=== PATIENT | male | born 1985 | race Two or more races ===

== ENCOUNTER 2025-05-10 17:33 | Inpatient (IN) | payer MEDICAID, OTHER, SELFPAY ==
[~2025-05-10] VITALS: Ht 182.9 cm; Wt 99.6 kg
--- NOTE | 2025-05-10 18:02 | ED.PDOC ---
General HPI Comments curtis: Right abdominal pain HPI: Poor Historian. ---year old male presents to emergency department by EMS for evaluation of nausea and vomiting and right-sided abdominal pain since he left the hospital this morning. Patient went to [facility] with he had a kidney stent placed for history of kidney stone. Patient went home and took some hydrocodone he has been having nausea and vomiting and pain in the same area as before. Patient was slightly tachycardic and hypotensive at the scene blood pressure in the 80s. Patient is brought to the ED for further evaluation. Patient herself denies any other symptoms. Past Medical History:, hiatal hernia, GERD Past Surgical History: Right kidney stent placement REVIEW OF SYSTEMS: CONSTITUTIONAL: Denies acute: fever, diaphoresis, chills, HEAD: Denies acute: headache, photophobia Eyes: Denies acute: Double vision, vision loss, eye pain, eye discharge. EARS: Denies acute: tinnitus, hearing loss, ear discharge, ear pain, THROAT: Denies acute: sore throat, swelling, difficulty swallowing , pain with swallow ing, change in voice. NECK: Denies acute: neck pain, neck swelling, stiff neck. HEART: Denies acute : chest pain, palpitations, LUNGS: Denies acute: SOB, wheezing, cough, hemoptysis ABDOMEN: Denies acute: , diarrhea, melena , hematemesis, hematochezia SKIN: Denies acute: rash, redness, lesions, itchiness. EXTREMITIES: Denies acute: calf pain, numbness, tingling, weakness, denies pain in extremity. Denies acute: Low back pain. Neuro: Denies acute: focal neurological deficit, motor or sensory focal neurological deficit, tremors, seizure like activity, confusion, dizziness, change in mental status, loss of bowel or bladder function, cauda equina like symptoms. : Denies acute: dysuria, hematuria, increase in urinary frequency. PSYCH: Denies acute: hallucination, suicidal ideation, homicidal ideation. . PHYSICAL EXAM: General: ----moderate----acute distress, awake and alert. Head: normocephalic, atraumatic. No raccoon's eyes, no long sign. Neck: supple, trachea is midline, no swelling. Throat: Normal phonation. Eyes:, no erythema, no purulent discharge, no proptosis, no icterus. Heart: regular rate, regular rhythm, no significant murmur appreciated. Lungs: no apparent respiratory distress, Able to speak in full sentences. No wheezing, no rhonchi, no crackles. No stridors Clear to auscultation bilaterally. Abdomen: Right mid abdomen tender to palpation, non distended, soft, no guarding, no rebound, + bowel sounds. Neuro: Awake, Alert, oriented to name, self, situation, follows commands GCS=15. Speech is normal. Skin: no petechia, no purpura, no cyanosis, non-pale, not jaundice. Lower extremities: --no - Pitting edema no deformity, no focal swelling, no calf TTP. Makes eye contact. moves all four extremities. Face: no apparent facial droop. Right CVA tenderness to percussion . No nuchal rigidity, Kernig's sign, Brudzinski's sign, no meningeal signs. ED COURSE: DISCLAIMER: This medical document was created using an electronic medical record system with voice recognition software and computerized dictation system. Although this document has been carefully reviewed, there might still be some phonetic and typographical errors. Occasional wrong-word or "sound-alike" substitutions may have occurred due to the inherent limitations of voice recognition software. These areas are purely typographical due to imperfections of the software programs and do not reflect any compromise in the patient's medical care. Please read the chart carefully and recognize, using context, where these substitutions have occurred. Time Seen by MD: 17:41 Reviewed notes: Allergies Allergies: Coded Allergies: NO KNOWN ALLERGIES (Unverified , 05/10/25) Information Source: Patient, Emergency Med Personnel Was a procedure done? Was a procedure done?: No Differential Diagnosis Kidney stone (Female): N/A Kidney stone (Male): Other (Flank Pain;DDX include Nephrolethiasis, obstructive uropathy, kidney cancer, renal infarct, intraabdominal neoplasm, lower lobe pneumonia, retroperitoneal hemorrhage, pancreatitis, aneurysm, dissection, musculoskeletal, rib contusion/trauma, hematoma, PYLONEPHRITIS, muscle strain, spinal disease. ) X-Ray, Labs, Meds, VS Vital Signs Date Time Temp Pulse Resp B/P (MAP) Pulse Ox O2 Delivery O2 Flow Rate FiO2 05/10/25 19:38 89 12 96 Nasal Cannula* 2 28 05/10/25 19:30 97.9 89 12 139/82 (101) 96 97.9 05/10/25 18:25 146/87 05/10/25 17:49 Room Air* 0 21 05/10/25 17:49 98.9 79 20 150/93 (112) 99 98.9 05/10/25 17:33 98.7 98 18 82/30 100 98.7 Lab Test 05/10/25 19:20 05/10/25 17:54 Range/Units White Blood Count 12.7 H 13.0 H 4.4-10.8 10^3/uL Red Blood Count 5.43 5.31 4.5-5.90 10^6/uL Hemoglobin 14.7 14.6 13.5-17.5 g/dL Hematocrit 44.6 43.8 41.0-53.0 % Mean Corpuscular Volume 82.2 82.6 80.0-100.0 fL Mean Corpuscular Hemoglobin 27.0 L 27.5 L 28.0-32.0 pg Mean Corpuscular Hemoglobin Concent 32.9 33.3 32.0-36.0 g/dL Red Cell Distribution Width 14.3 14.2 11.8-14.3 % Platelet Count 333 318 140-450 10^3/uL Mean Platelet Volume 6.6 L 6.6 L 6.9-10.8 fL Neutrophils (%) (Auto) 91.5 H 94.2 H 37.0-80.0 % Lymphocytes (%) (Auto) 4.3 L 3.3 L 10.0-50.0 % Monocytes (%) (Auto) 4.1 2.0 0.0-12.0 % Eosinophils (%) (Auto) 0.0 0.0 0.0-7.0 % Basophils (%) (Auto) 0.1 0.5 0.0-2.0 % Neutrophils # (Auto) 11.7 H 12.2 H 1.6-8.6 10 ^3/uL Lymphocytes # (Auto) 0.5 0.4 0.4-5.4 10 ^3/uL Monocytes # (Auto) 0.5 0.3 0-1.3 10 ^3/uL Eosinophils # (Auto) 0 0 0-0.8 10 ^3/uL Basophils # (Auto) 0 0.1 0-0.2 10 ^3/uL Nucleated Red Blood Cells 0.1 0.0 % Sodium Level 143 141 136-145 mmol/L Potassium Level 4.7 4.8 3.5-5.1 mmol/L Chloride Level 107 106 98-107 mmol/L Carbon Dioxide Level 24 23 20-31 mmol/L Anion Gap 12 12 5-15 Blood Urea Nitrogen 15 16 9-23 mg/dL Creatinine 1.37 H 1.45 H 0.700-1.30 mg/dL Glomerular Filtration Rate Calc 67 63 >90 mL/min BUN/Creatinine Ratio 10.9 11.0 10.0-20.0 Serum Glucose 114 H 139 H 74-106 mg/dL Lactic Acid Level 2.6 *H 4.2 *H 0.4-2.0 mmol/L Calcium Level 10.2 10.0 8.7-10.4 mg/dL Total Bilirubin 0.4 0.3 0.2-1.0 mg/dL Aspartate Amino Transferase (AST) 31 34 13-40 U/L Alanine Aminotransferase (ALT) 76 H 74 H 7-40 U/L Alkaline Phosphatase 93 91 46-116 U/L Total Protein 8.6 H 8.4 H 5.7-8.2 g/dL Albumin 5.0 H 4.9 H 3.2-4.8 g/dL Prothrombin Time 11.2 9.3-11.8 sec Prothrombin Time INR 1.06 0.9-1.15 Activated Partial Thromboplast Time 27.6 24.5-34.5 SEC Lipase 40 12-53 U/L Current Medications Medications (Trade) Dose Ordered Sig/Carmen Route Start Time Stop Time Status Last Admin Sodium Chloride 1,000 ml @ 1,000 mls/hr Q1H ONCE IV 05/10/25 17:45 05/10/25 18:44 DC 05/10/25 18:16 Ondansetron HCl (Zofran) 8 mg ONCE ONCE IV 05/10/25 17:45 05/10/25 17:46 DC 05/10/25 18:24 Fentanyl Citrate 100 mcg ONCE ONCE IV 05/10/25 17:45 05/10/25 17:46 DC 05/10/25 18:25 Ceftriaxone Sodium 50 ml @ 100 mls/hr ONCE ONCE IV 05/10/25 17:45 05/10/25 18:14 DC 05/10/25 18:23 Lactated Ringer's 2,350 ml @ 2,350 mls/hr ONCE ONCE IV 05/10/25 19:30 05/10/25 20:29 DC 05/10/25 20:19 Vancomycin HCl 250 ml @ 250 mls/hr ONCE ONCE IV 05/10/25 19:30 05/10/25 20:29 DC 05/10/25 20:19 Cefepime HCl 50 ml @ 12.5 mls/hr ONCE ONCE IV 05/10/25 19:30 05/10/25 23:29 DC 05/10/25 20:18 X-Ray, Labs, Meds, VS Comment [place] [address] Ph: [phone] DIAGNOSTIC IMAGING Diagnostic Imaging Report : [id number] Signed PATIENT: MAIRA PHOENIX ACCT: [id number] UNIT: [id number] : 1985 LOC: ER ROOM / BED: / AGE / SEX: 39 / M ADM STATUS: REG ER SERVICE 21 ORDERING PHYSICIAN: SUSHANT MCKEON DO PROCEDURE(s): CXRP - CHEST PORTABLE REASON: sepsis ORDER NUMBER(s): [id number], ACCESSION NUMBER(s): [id number] CHEST RADIOGRAPH Indication: sepsis Technique: Single frontal view of the chest was obtained Comparison: None FINDINGS: Lines and Tubes: None Lungs: No focal consolidation. Pleura: No effusion. No pneumothorax. Cardiomediastinal contours: Unremarkable Bones: No acute osseous abnormality. IMPRESSION: 1. No acute cardiopulmonary disease. ATED BY: JANICE SANZ Jr., DO DICTATED DATE/TIME: 05/10/251957 SIGNED BY: JANICE SANZ Jr., DO SIGNED DATE/TIME: 05/10/251957 CC: [address] [address] Ph: [phone] DIAGNOSTIC IMAGING Diagnostic Imaging Report : [id number] Signed PATIENT: MAIRA PHOENIX ACCT: [id number] UNIT: [id number] : 1985 LOC: ER ROOM / BED: / AGE / SEX: 39 / M ADM STATUS: REG ER SERVICE 174 ORDERING PHYSICIAN: SUSHANT MCKEON DO PROCEDURE(s): ABPL - CT AB PEL WO CON-NO ORAL OR IV REASON: R FLANK, R ABD PAIN N/V ORDER NUMBER(s): [id number], ACCESSION NUMBER(s): [id number] EXAM: CT CT AB PEL WO CON-NO ORAL OR IV INDICATION: R FLANK, R ABD PAIN N/V TECHNIQUE: Volumetric multidetector CT images of the abdomen and pelvis were obtained without contrast. All CT scans at this facility use dose modulation, iterative reconstruction, and/or weight based dosing when appropriate to reduce radiation dose to as low as reasonably achievable. COMPARISON: None FINDINGS: [LOWER CHEST]: Atelectasis of the right lung base. The cardiac size is normal without pericardial effusion. [LIVER]: Normal hepatic size without suspicious focal lesion. [GALLBLADDER AND BILIARY TREE]: No cholelithiasis. [SPLEEN]: Unremarkable. [PANCREAS]: Unremarkable. [ADRENAL GLANDS]: Unremarkable [KIDNEYS]: Right renal pelvic 8 mm stone. Additional right inferior renal caliceal 6 mm stone. 2-3 mm left inferior renal caliceal stone with additional small caliber 1 mm stones. No measurable distal ureteral stone. No hydronephrosis. No suspicious focal lesion. [BLADDER]: Unremarkable for the degree distention. [REPRODUCTIVE ORGANS]: Unremarkable. [BOWEL/MESENTERY]: Mild stool burden. Stomach is normal. Normal appendix. No CT evidence of bowel obstruction. [ASCITES]: Absent [LYMPHADENOPATHY]: No pathologically enlarged lymph nodes by CT size criteria [VASCULATURE]: No aneurysmal dilatation. [ABDOMINAL WALL]: Unremarkable. [MUSCULOSKELETAL]: No acute fracture or aggressive focal osseous lesion. IMPRESSION: 1. No CT evidence of an acute abdominal/pelvic process. 2. Right renal pelvic 8 mm stone. 3. No hydronephrosis. ATED BY: CHACORTA HICKMAN MD DICTATED DATE/TIME: 05/10/251911 SIGNED BY: CHACORTA HICKMAN MD SIGNED DATE/TIME: 05/10/251911 CC: Time of 1ST Reevaluation: 00:00 Reevaluation 1ST: N/A Time of 2ND Reevaluation: 00:38 Reevaluation 2ND: Improved Patient Education/Counseling: Diagnosis, Treatment Family Education/Counseling: No Family Present Comments MDM: patient presented with the above HPI.--abdominal pain/flank pain----workup was initiated. patient was found with the above mentioned diagnosis. the following medications were ordered: please refer to order lists of meds and tests obtained by myself Dr. Mckeon. Patient ED course and VS have been stabilized. Patient has been reassessed in the ED and remained in a stable condition. Pertinent incidental findings were discussed with the patient and/or family. Patient/family voices understanding and is agreeable with plan. Patient has been observed in the ED adequate length of time to insure improvement/stability. Escalation of care considered: Consideration of escalation to observation or admission Patient's sepsis criteria. Sepsis bundle was initiated. Patient arrived hypotensive. Patient was ADMITTED to the medicine team for further evaluation and treatment of their presentation. All the reports of any imaging studies that were ordered by myself were reviewed by myself. 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 ) Ct Ab Pel Wo Con-No Oral Or Iv (05/10/25 17:41) Blood Culture (05/10/25 19:04) Urinalysis (05/10/25 19:04) Chest Portable (05/10/25 19:22) Accucheck (05/10/25 19:22) Notify Md If Map <65 Or Bp<90 (05/10/25 19:22) If Map<65 Start Vasopressor (05/10/25 19:22) Sepsis Reassesment After Fluid (05/10/25 20:22) Vital Signs Date Time Temp Pulse Resp B/P (MAP) Pulse Ox O2 Delivery O2 Flow Rate FiO2 05/10/25 19:38 89 12 96 Nasal Cannula* 2 28 05/10/25 19:30 97.9 89 12 139/82 (101) 96 97.9 05/10/25 18:25 146/87 05/10/25 17:49 Room Air* 0 21 05/10/25 17:49 98.9 79 20 150/93 (112) 99 98.9 05/10/25 17:33 98.7 98 18 82/30 100 98.7 Laboratory Tests Test 05/10/25 17:54 05/10/25 19:20 Lactic Acid Level 4.2 mmol/L (0.4-2.0) *H 2.6 mmol/L (0.4-2.0) *H White Blood Count 13.0 10^3/uL (4.4-10.8) H 12.7 10^3/uL (4.4-10.8) H Medications Medications Dose Ordered Sig/Carmen Route Start Time Stop Time Status Last Admin Dose Admin Cefepime HCl 50 ml @ 12.5 mls/hr ONCE ONCE IV 05/10/25 19:30 05/10/25 23:29 DC 05/10/25 20:18 Ceftriaxone Sodium 50 ml @ 100 mls/hr ONCE ONCE IV 05/10/25 17:45 05/10/25 18:14 DC 05/10/25 18:23 Fentanyl Citrate 100 mcg ONCE ONCE IV 05/10/25 17:45 05/10/25 17:46 DC 05/10/25 18:25 Lactated Ringer's 2,350 ml @ 2,350 mls/hr ONCE ONCE IV 05/10/25 19:30 05/10/25 20:29 DC 05/10/25 20:19 Ondansetron HCl 8 mg ONCE ONCE IV 05/10/25 17:45 05/10/25 17:46 DC 05/10/25 18:24 Sodium Chloride 1,000 ml @ 1,000 mls/hr Q1H ONCE IV 05/10/25 17:45 05/10/25 18:44 DC 05/10/25 18:16 Vancomycin HCl 250 ml @ 250 mls/hr ONCE ONCE IV 05/10/25 19:30 05/10/25 20:29 DC 05/10/25 20:19 Departure 1 Departure Time of Disposition: 19:27 Impression: Primary Impression: Sepsis Additional Impressions: Flank pain Kidney stone Disposition: ADMITTED INPATIENT Admit to: [facility] Condition: Guarded Discharged With: Self Critical Care Note Critical Care Time?: Yes (45 min-critical care time only) Critical care comment: Due to a high probability of clinically significant, life threatening deterioration, the patient required my highest level of preparedness to intervene emergently and I personally spent this critical care time directly and personally managing the patient. This critical care time included obtaining a history; examining the patient; pulse oximetry; ordering and review of studies; arranging urgent treatment with development of a management plan; evaluation of patient's response to treatment; frequent reassessment; and, discussions with other providers. This critical care time was performed to assess and manage the high probability of imminent, life-threatening deterioration that could result in multi-organ failure. It was exclusive of separately billable procedures and treating other patients and teaching time. Please see my other sections and the rest of the note for further information on patient assessment and treatment. I personally scribed for SUSHNAT MCKEON DO ([email or web address]) on 05/10/25 at 21:17. Electronically submitted by Jose Grant ([email or web address]). SUSHANT MCKEON DO May 10, 2025 18:02
[2025-05-10 18:14] LABS: Hematocrit 43.8 % (41.0-53.0); Hemoglobin 14.6 g/dL (13.5-17.5); Mean Corpuscular Hemoglobin 27.5 pg (28.0-32.0); Mean Corpuscular Volume 82.6 fL (80.0-100.0); Nucleated Red Blood Cells % 0.0 %
[2025-05-10] MEDS: SODIUM CHLORIDE 0.9% 1,000 ML IV ONE (18:16)
[2025-05-10] MEDS: ONDANSETRON HCL 4 MG/2 ML VIAL IV ONE (18:24)
[2025-05-10] MEDS: fentaNYL CITRATE 100 MCG/2 ML VL IV ONE (18:25)
[2025-05-10 18:32] LABS: Alkaline Phosphatase 91 U/L (46-116); Anion Gap 12 (5-15); BUN/Creatinine Ratio 11.0 (10.0-20.0); Blood Urea Nitrogen 16 mg/dL (9-23); Calcium 10.0 mg/dL (8.7-10.4); Carbon Dioxide 23 mmol/L (20-31); Chloride 106 mmol/L (98-107); Lipase 40 U/L (12-53); Potassium 4.8 mmol/L (3.5-5.1); Sodium 141 mmol/L (136-145)
[2025-05-10 18:33] LABS: Bilirubin, Total 0.3 mg/dL (0.2-1.0)
[2025-05-10 18:50] LABS: Alanine Aminotransferase 74 U/L (7-40); Albumin 4.9 g/dL (3.2-4.8); Glucose 139 mg/dL (74-106); Total Protein 8.4 g/dL (5.7-8.2)
--- NOTE | 2025-05-10 19:14 | DVH ---
EXAM: CT CT AB PEL WO CON-NO ORAL OR IV INDICATION: R FLANK, R ABD PAIN N/V TECHNIQUE: Volumetric multidetector CT images of the abdomen and pelvis were obtained without contrast. All CT scans at this facility use dose modulation, iterative reconstruction, and/or weight based dosing when appropriate to reduce radiation dose to as low as reasonably achievable. COMPARISON: None FINDINGS: [LOWER CHEST]: Atelectasis of the right lung base. The cardiac size is normal without pericardial effusion. [LIVER]: Normal hepatic size without suspicious focal lesion. [GALLBLADDER AND BILIARY TREE]: No cholelithiasis. [SPLEEN]: Unremarkable. [PANCREAS]: Unremarkable. [ADRENAL GLANDS]: Unremarkable [KIDNEYS]: Right renal pelvic 8 mm stone. Additional right inferior renal caliceal 6 mm stone. 2-3 mm left inferior renal caliceal stone with additional small caliber 1 mm stones. No measurable distal ureteral stone. No hydronephrosis. No suspicious focal lesion. [BLADDER]: Unremarkable for the degree distention. [REPRODUCTIVE ORGANS]: Unremarkable. [BOWEL/MESENTERY]: Mild stool burden. Stomach is normal. Normal appendix. No CT evidence of bowel obstruction. [ASCITES]: Absent [LYMPHADENOPATHY]: No pathologically enlarged lymph nodes by CT size criteria [VASCULATURE]: No aneurysmal dilatation. [ABDOMINAL WALL]: Unremarkable. [MUSCULOSKELETAL]: No acute fracture or aggressive focal osseous lesion. IMPRESSION: 1. No CT evidence of an acute abdominal/pelvic process. 2. Right renal pelvic 8 mm stone. 3. No hydronephrosis.
[2025-05-10 19:19] LABS: Lactic Acid w/Reflex 4.2 mmol/L (0.4-2.0)
[2025-05-10 19:38] VITALS: PULSE 89; RESP 12; O2SAT 96
[2025-05-10 20:01] LABS: Hematocrit 44.6 % (41.0-53.0); Hemoglobin 14.7 g/dL (13.5-17.5); Mean Corpuscular Hemoglobin 27.0 pg (28.0-32.0); Mean Corpuscular Volume 82.2 fL (80.0-100.0); Nucleated Red Blood Cells % 0.1 %
--- NOTE | 2025-05-10 20:01 | DVH ---
CHEST RADIOGRAPH Indication: sepsis Technique: Single frontal view of the chest was obtained Comparison: None FINDINGS: Lines and Tubes: None Lungs: No focal consolidation. Pleura: No effusion. No pneumothorax. Cardiomediastinal contours: Unremarkable Bones: No acute osseous abnormality. IMPRESSION: 1. No acute cardiopulmonary disease.
[2025-05-10 20:03] LABS: INR 1.06 (0.9-1.15); Partial Thromboplastin Time 27.6 SEC (24.5-34.5); Prothrombin Time 11.2 sec (9.3-11.8)
[2025-05-10 20:16] LABS: Alanine Aminotransferase 76 U/L (7-40); Albumin 5.0 g/dL (3.2-4.8); Alkaline Phosphatase 93 U/L (46-116); Anion Gap 12 (5-15); BUN/Creatinine Ratio 10.9 (10.0-20.0); Bilirubin, Total 0.4 mg/dL (0.2-1.0); Blood Urea Nitrogen 15 mg/dL (9-23); Calcium 10.2 mg/dL (8.7-10.4); Carbon Dioxide 24 mmol/L (20-31); Chloride 107 mmol/L (98-107); Glucose 114 mg/dL (74-106); Potassium 4.7 mmol/L (3.5-5.1); Sodium 143 mmol/L (136-145); Total Protein 8.6 g/dL (5.7-8.2)
[2025-05-10] MEDS: CEFEPIME 1GM/50ML 50 ML IV ONE (20:18)
[2025-05-10] MEDS: LACTATED RINGER'S 2,350 ML IV ONE (20:19)
[2025-05-10] MEDS: VANCOMYCIN 1GM/250ML KIT 250 ML IV ONE (20:19)
--- NOTE | 2025-05-10 20:54 | DVHHP2 ---
History of Present Illness Reason for Visit: Sepsis, unspecified organism History of Present Illness The patient is a 39-year-old male with past medical history of kidney stone, GERD, and hiatal hernia who presented to [facility] ED with complaint of abdominal pain. Patient reports that he has been experiencing acute abdominal pain radiating to the right flank, rating 7/10 numeric scale, associated with nausea, vomiting, getting worse that prompted this visit. Patient was seen and evaluated in the ED, laboratory data shows WBC 12.7, platelets 333, sodium 143, potassium 4.7, BUN 15, creatinine 1.37, GFR 67, glucose 114, calcium 10.2, AST 31, ALT 76, protein 8.6, albumin 5.0, lipase 40, lactic acid 4.2, blood pressure 146/87, heart rate 89, temperature 97.9 F, O2 saturation 96% on oxygen. Abdomen/pelvis CT revealing right renal pelvic 8 mm stone, no hydronephrosis, no evidence of an acute abdominal/pelvic process. Patient was started on IV antibiotic regimen Rocephin, please see medication orders section in the computer. On my assessment, patient denied chest pain, no headache, dizziness, diaphoresis, shortness of breaths, no diarrhea, nausea, vomiting, fever, no chills. Patient was admitted for further evaluation and medical management. Past Medical History Kidney stone, GERD, Hiatal hernia Past Surgical History Right kidney stent placement Family History Reviewed, noncontributory to the management of this case. Past Social History The patient lives at home, denies smoking, alcohol or illicit drugs abuse. Review of Systems Constitutional: No: Fever, Chills, Sweats, Weakness, Malaise, Other Eyes: No: Pain, Vision change, Conjunctivae inflammation, Eyelid inflammation, Other, Redness ENT: No: Ear pain, Ear discharge, Nose pain, Nose discharge, Nose congestion, Mouth pain, Mouth swelling, Throat pain, Throat swelling, Other Respiratory: No: Cough, Dry, Shortness of breath, SOB with excertion, Wheezing, Hemoptysis, Pleuritic Pain, Sputum, Wheezing, Other Cardiovascular: No: Chest Pain, Palpitations, Orthopnea, Paroxysmal Noc. Dyspnea, Edema, Lt Headedness, Other Gastrointestinal: Nausea, Vomiting, Abdominal Pain; No: Diarrhea, Constipation, Melena, Hematochezia, Other Genitourinary: No Dysuria, No Frequency, No Incontinence, No Hematuria, No Retention; Other (Right flank pain) Musculoskeletal: No: other, neck pain, shoulder pain, arm pain, back pain, hand pain, leg pain, foot pain Skin: No: Rash, Lesions, Jaundice, Bruising, Other Neurological: No: Weakness, Numbness, Incoordination, Change in speech, Confusion, Seizures, Other Allergies: Coded Allergies: NO KNOWN ALLERGIES (Unverified , 05/10/25) Exam Vital Signs Vital Signs Date Time Temp Pulse Resp B/P (MAP) Pulse Ox O2 Delivery O2 Flow Rate FiO2 05/10/25 19:38 89 12 96 Nasal Cannula* 2 28 05/10/25 19:30 97.9 139/82 (101) 97.9 General Appearance: Alert, Oriented X3, Cooperative, No acute distress HEENT: Atraumatic, PERRLA, EOMI, Mucous membr. moist/pink Respiratory: Normal air movement Cardiovascular: Regular rate, Normal S1, Normal S2, No murmurs Abdominal: Normal bowel sounds, Soft, No tenderness, No hepatospenomegaly, No masses Extremities: No clubbing, No cyanosis, No edema, Normal pulses, No tenderness/swelling Skin: No rashes, No significant lesion Neuro: Normal speech, Normal tone, Sensation intact, Cranial nerves 3-12 NL, Reflexes 2+, Other (Generalized weakness) Psych/Mental Status: Mental status NL, Mood NL Labs/Xrays Labs Test 05/10/25 19:20 05/10/25 17:54 Range/Units White Blood Count 12.7 H 4.4-10.8 10^3/uL Red Blood Count 5.43 4.5-5.90 10^6/uL Hemoglobin 14.7 13.5-17.5 g/dL Hematocrit 44.6 41.0-53.0 % Mean Corpuscular Volume 82.2 80.0-100.0 fL Mean Corpuscular Hemoglobin 27.0 L 28.0-32.0 pg Mean Corpuscular Hemoglobin Concent 32.9 32.0-36.0 g/dL Red Cell Distribution Width 14.3 11.8-14.3 % Platelet Count 333 140-450 10^3/uL Mean Platelet Volume 6.6 L 6.9-10.8 fL Neutrophils (%) (Auto) 91.5 H 37.0-80.0 % Lymphocytes (%) (Auto) 4.3 L 10.0-50.0 % Monocytes (%) (Auto) 4.1 0.0-12.0 % Eosinophils (%) (Auto) 0.0 0.0-7.0 % Basophils (%) (Auto) 0.1 0.0-2.0 % Neutrophils # (Auto) 11.7 H 1.6-8.6 10 ^3/uL Lymphocytes # (Auto) 0.5 0.4-5.4 10 ^3/uL Monocytes # (Auto) 0.5 0-1.3 10 ^3/uL Eosinophils # (Auto) 0 0-0.8 10 ^3/uL Basophils # (Auto) 0 0-0.2 10 ^3/uL Nucleated Red Blood Cells 0.1 % Sodium Level 143 136-145 mmol/L Potassium Level 4.7 3.5-5.1 mmol/L Chloride Level 107 98-107 mmol/L Carbon Dioxide Level 24 20-31 mmol/L Anion Gap 12 5-15 Blood Urea Nitrogen 15 9-23 mg/dL Creatinine 1.37 H 0.700-1.30 mg/dL Glomerular Filtration Rate Calc 67 >90 mL/min BUN/Creatinine Ratio 10.9 10.0-20.0 Serum Glucose 114 H 74-106 mg/dL Lactic Acid Level 2.6 *H 0.4-2.0 mmol/L Calcium Level 10.2 8.7-10.4 mg/dL Total Bilirubin 0.4 0.2-1.0 mg/dL Aspartate Amino Transferase (AST) 31 13-40 U/L Alanine Aminotransferase (ALT) 76 H 7-40 U/L Alkaline Phosphatase 93 46-116 U/L Total Protein 8.6 H 5.7-8.2 g/dL Albumin 5.0 H 3.2-4.8 g/dL Prothrombin Time 11.2 9.3-11.8 sec Prothrombin Time INR 1.06 0.9-1.15 Activated Partial Thromboplast Time 27.6 24.5-34.5 SEC Lipase 40 12-53 U/L PATIENT: MAIRA PHOENIX ACCT: [id number] UNIT: [id number] : 1985 LOC: ER ROOM / BED: / AGE / SEX: 39 / M ADM STATUS: REG ER SERVICE [id number] ORDERING PHYSICIAN: SUSHANT MCKEON DO PROCEDURE(s): ABPL - CT AB PEL WO CON-NO ORAL OR IV REASON: R FLANK, R ABD PAIN N/V ORDER NUMBER(s): [id number], ACCESSION NUMBER(s): [id number] EXAM: CT CT AB PEL WO CON-NO ORAL OR IV INDICATION: R FLANK, R ABD PAIN N/V TECHNIQUE: Volumetric multidetector CT images of the abdomen and pelvis were obtained without contrast. All CT scans at this facility use dose modulation, iterative reconstruction, and/or weight based dosing when appropriate to reduce radiation dose to as low as reasonably achievable. COMPARISON: None FINDINGS: [LOWER CHEST]: Atelectasis of the right lung base. The cardiac size is normal without pericardial effusion. [LIVER]: Normal hepatic size without suspicious focal lesion. [GALLBLADDER AND BILIARY TREE]: No cholelithiasis. [SPLEEN]: Unremarkable. [PANCREAS]: Unremarkable. [ADRENAL GLANDS]: Unremarkable [KIDNEYS]: Right renal pelvic 8 mm stone. Additional right inferior renal caliceal 6 mm stone. 2-3 mm left inferior renal caliceal stone with additional small caliber 1 mm stones. No measurable distal ureteral stone. No hydronephrosis. No suspicious focal lesion. [BLADDER]: Unremarkable for the degree distention. [REPRODUCTIVE ORGANS]: Unremarkable. [BOWEL/MESENTERY]: Mild stool burden. Stomach is normal. Normal appendix. No CT evidence of bowel obstruction. [ASCITES]: Absent [LYMPHADENOPATHY]: No pathologically enlarged lymph nodes by CT size criteria [VASCULATURE]: No aneurysmal dilatation. [ABDOMINAL WALL]: Unremarkable. [MUSCULOSKELETAL]: No acute fracture or aggressive focal osseous lesion. IMPRESSION: 1. No CT evidence of an acute abdominal/pelvic process. 2. Right renal pelvic 8 mm stone. 3. No hydronephrosis. ORDERING PHYSICIAN: SUSHANT MCKEON DO PROCEDURE(s): CXRP - CHEST PORTABLE REASON: sepsis ORDER NUMBER(s): [id number], ACCESSION NUMBER(s): [id number] CHEST RADIOGRAPH Indication: sepsis Technique: Single frontal view of the chest was obtained Comparison: None FINDINGS: Lines and Tubes: None Lungs: No focal consolidation. Pleura: No effusion. No pneumothorax. Cardiomediastinal contours: Unremarkable Bones: No acute osseous abnormality. IMPRESSION: 1. No acute cardiopulmonary disease. SEPSIS Sepsis Screen Date sepsis recognized/suspect: May 10, 2025 Time Sepsis recognized/suspect: 1937 Recent Procedure: Yes On Antibiotic Therapy: Yes Respiratory Rate >20: No Heart Rate >90: No Temp<36 C (96.8 F) or >38.3 C: No SBP <90 or MAP <65 mmHG: No New Acute Mental Status Change: No Is the patient on CPAP, BIPAP,: No Physician Orders Talent Acquisition Administrator (05/10/25 ) Ct Ab Pel Wo Con-No Oral Or Iv (05/10/25 17:41) Blood Culture (05/10/25 19:04) Urinalysis (05/10/25 19:04) Chest Portable (05/10/25 19:22) Accucheck (05/10/25 19:22) Lactic Acid W/ Reflex Order (05/10/25 22:00) Cefepime 1gm/50ml (Maxipime 1gm/50ml) (05/10/25 19:30) Notify Md If Map <65 Or Bp<90 (05/10/25 19:22) If Map<65 Start Vasopressor (05/10/25 19:22) Sepsis Reassesment After Fluid (05/10/25 20:22) Famotidine Injection (Pepcid Injection) (05/11/25 10:00) Ceftriaxone Ivpb Rocephin (05/11/25 09:00) Metronidazole Ivpb Flagyl (05/10/25 22:00) Lactated Ringers Lr (05/10/25 21:00) Lactic Acid W/ Reflex Order (05/10/25 23:00) Admit (05/10/25 20:47) Allergies (05/10/25 20:47) Code Status (05/10/25 20:47) Oxygen Per Hour (05/10/25 20:47) Hydrocodone-Acet 5/325mg Tab ([facility]enter 532 (05/10/25 21:00) Ondansetron Hcl (Zofran) (05/10/25 21:00) Docusate Sodium Capsule (Colace Capsule) (05/10/25 21:00) Complete Blood Count (05/11/25 04:00) Comprehensive Metabolic Panel (05/11/25 04:00) Condition: Serious (05/10/25 20:47) Acetaminophen Tablet (Tylenol Tablet) (05/10/25 21:00) Clear Liq Diet (05/11/25 Breakfast) Bedrest With Bathroom Privileg (05/10/25 20:47) Morphine Sulfate Injection (05/10/25 21:00) Sequential Compression Device (05/10/25 ) Nitroglycerin Sublingual (Ntrostat Subli (05/10/25 21:00) Morphine Sulfate Injection (05/10/25 21:00) Stat Ekg For Chest Pain (05/10/25 20:47) Notify Md Of Changes From Base (05/10/25 20:47) Accounts Receivable Associate For 24 Hours (05/10/25 20:47) Emergency Dysrhythmia Protocol (05/10/25 20:47) Rhythm Strips Once Every Shift (05/10/25 20:47) Oxygen By Nasal Cannula (05/10/25 20:47) Sertraline Hcl (Zoloft) (05/11/25 10:00) Tamsulosin Hydrochloride (Flomax) (05/11/25 18:00) Vital Signs Date Time Temp Pulse Resp B/P (MAP) Pulse Ox O2 Delivery O2 Flow Rate FiO2 05/10/25 19:38 89 12 96 Nasal Cannula* 2 28 05/10/25 19:30 97.9 89 12 139/82 (101) 96 97.9 05/10/25 18:25 146/87 05/10/25 17:49 Room Air* 0 21 05/10/25 17:49 98.9 79 20 150/93 (112) 99 98.9 05/10/25 17:33 98.7 98 18 82/30 100 98.7 Laboratory Tests Test 05/10/25 17:54 05/10/25 19:20 Lactic Acid Level 4.2 mmol/L (0.4-2.0) *H 2.6 mmol/L (0.4-2.0) *H White Blood Count 13.0 10^3/uL (4.4-10.8) H 12.7 10^3/uL (4.4-10.8) H Medications Medications Dose Ordered Sig/Carmen Route Start Time Stop Time Status Last Admin Dose Admin Cefepime HCl 50 ml @ 12.5 mls/hr ONCE ONCE IV 05/10/25 19:30 05/10/25 23:29 05/10/25 20:18 12.5 MLS/HR Ceftriaxone Sodium 50 ml @ 100 mls/hr ONCE ONCE IV 05/10/25 17:45 05/10/25 18:14 DC 05/10/25 18:23 100 MLS/HR Fentanyl Citrate 100 mcg ONCE ONCE IV 05/10/25 17:45 05/10/25 17:46 DC 05/10/25 18:25 100 MCG Lactated Ringer's 2,350 ml @ 2,350 mls/hr ONCE ONCE IV 05/10/25 19:30 05/10/25 20:29 DC 05/10/25 20:19 2,350 MLS/HR Ondansetron HCl 8 mg ONCE ONCE IV 05/10/25 17:45 05/10/25 17:46 DC 05/10/25 18:24 8 MG Sodium Chloride 1,000 ml @ 1,000 mls/hr Q1H ONCE IV 05/10/25 17:45 05/10/25 18:44 DC 05/10/25 18:16 1,000 MLS/HR Vancomycin HCl 250 ml @ 250 mls/hr ONCE ONCE IV 05/10/25 19:30 05/10/25 20:29 DC 05/10/25 20:19 250 MLS/HR Assessment/Plan Assessment/Plan Sepsis, unspecified organism Kidney stone Right flank pain Acute abdominal pain Generalized weakness Plan 1. Admit to telemetry unit 2. Breathing treatment 3. Pain control management 4. IV antibiotic management 5. Management of fluids and electrolytes 6. Consultation for hospitalist 7. Diagnostic test abdomen/pelvis CT 8. DVT prophylaxis-on SCDs 9. Repeat labs CBC, CMP in a.m. 10. Home medication reviewed and reconciled 11. Continue with current medical management 12. Treatment plan discussed with patient and RN. Patient verbalized understanding. Plan discussed with: Patient, Other (RN) My Orders Orders - FREDDY CHAVEZ DNP Procedure Category Date Status Time Famotidine Injection PHA 05/11/25 Transmitted (Pepcid Injection) 10:00 Ceftriaxone Ivpb PHA 05/11/25 Transmitted Rocephin 09:00 Metronidazole Ivpb PHA 05/10/25 Transmitted Flagyl 22:00 Lactated Ringers Lr PHA 05/10/25 Transmitted 21:00 Lactic Acid W/ Reflex LAB 05/10/25 Transmitted Order 23:00 Admit ADMIT 05/10/25 Transmitted 20:47 Allergies ANA 05/10/25 Transmitted 20:47 Code Status CODE 05/10/25 Transmitted 20:47 Oxygen Per Hour RT 05/10/25 Transmitted 20:47 Hydrocodone-Acet PHA 05/10/25 Transmitted 5/325mg Tab (C[place]enter 21:00 Ondansetron Hcl PHA 05/10/25 Transmitted (Zofran) 21:00 Docusate Sodium [facility] 05/10/25 Transmitted Capsule (Colace 21:00 Complete Blood Count LAB 05/11/25 Verified 04:00 Comprehensive LAB 05/11/25 Verified Metabolic Panel 04:00 Condition: Serious ANA 05/10/25 Transmitted 20:47 Acetaminophen Tablet [facility] 05/10/25 Transmitted (Tylenol Tablet) 21:00 Clear Liq Diet DIET 05/11/25 Transmitted Breakfast Bedrest With Bathroom ANA 05/10/25 Transmitted Privileg 20:47 Morphine Sulfate [facility] 05/10/25 Transmitted Injection 21:00 Sequential [facility] 05/10/25 Transmitted Compression Device Nitroglycerin [facility] 05/10/25 Transmitted Sublingual (Ntrostat 21:00 Morphine Sulfate PHA 05/10/25 Transmitted Injection 21:00 Stat Ekg For Chest [facility] 05/10/25 Transmitted Pain 20:47 Notify Of Changes [facility] 05/10/25 Transmitted From Base 20:47 Accounts Receivable Associate For [facility] 05/10/25 Transmitted 24 Hours 20:47 Emergency Dysrhythmia [facility] 05/10/25 Transmitted Protocol 20:47 Rhythm Strips Once [facility] 05/10/25 Transmitted Every Shift 20:47 Oxygen By Nasal RT 05/10/25 Transmitted Cannula 20:47 Sertraline Hcl [facility] 05/11/25 Transmitted (Zoloft) 10:00 Tamsulosin PHA 05/11/25 Transmitted Hydrochloride (Flomax) 18:00 Problem List: (1) Sepsis, unspecified organism (2) Kidney stone (3) Right flank pain (4) Acute abdominal pain (5) Generalized weakness Date of Service: May 10, 2025 Billing Provider: FREDDY CHAVEZ DNP Common Visit Codes: [id number] INP/OBS CARE (HIGH) FREDDY CHAVEZ DNP May 10, 2025 20:54
[2025-05-10] MEDS ORDERED: DOCUSATE SOD 100 MG CAP PO PRN (21:00)
[2025-05-10] MEDS ORDERED: NITROGLYCERIN 0.4 MG SL TAB SL PRN (21:00)
[2025-05-10] MEDS ORDERED: MORPHINE SULFATE INJ 2 MG/ml SYRG IV PRN ×2 (21:00)
[2025-05-10] MEDS: LACTATED RINGER'S 1,000 ML IV SCH (21:33)
[2025-05-11] VITALS (7 sets, daily range): BP systolic 145–158; BP diastolic 85–97; PULSE 77–89; RESP 16–20; TEMP 98.2–98.7; O2SAT 94–98
[2025-05-11 00:43] LABS: Urine Protein, UAD 1+ (Negative)
[2025-05-11] MEDS: ACETAMINOPHEN 325 MG TAB PO PRN (01:48)
[2025-05-11 03:29] LABS: Hematocrit 39.3 % (41.0-53.0); Hemoglobin 13.1 g/dL (13.5-17.5); Mean Corpuscular Hemoglobin 27.4 pg (28.0-32.0); Mean Corpuscular Volume 81.9 fL (80.0-100.0); Nucleated Red Blood Cells % 0.0 %
[2025-05-11 03:45] LABS: Albumin 4.3 g/dL (3.2-4.8); Alkaline Phosphatase 77 U/L (46-116); Anion Gap 10 (5-15); BUN/Creatinine Ratio 11.7 (10.0-20.0); Bilirubin, Total 0.4 mg/dL (0.2-1.0); Blood Urea Nitrogen 13 mg/dL (9-23); Calcium 9.4 mg/dL (8.7-10.4); Carbon Dioxide 26 mmol/L (20-31); Chloride 105 mmol/L (98-107); Glucose 105 mg/dL (74-106); Potassium 4.3 mmol/L (3.5-5.1); Sodium 141 mmol/L (136-145); Total Protein 7.2 g/dL (5.7-8.2)
[2025-05-11 03:47] LABS: Alanine Aminotransferase 56 U/L (7-40)
[2025-05-11] MEDS: FAMOTIDINE (10MG/ML) 2ML VL IV SCH (10:31)
[2025-05-11] MEDS: SERTRALINE HCL 50 MG TAB PO SCH (10:31)
[2025-05-11] MEDS: HYDROcodone-ACET 5/325MG TAB PO PRN (12:02)
--- NOTE | 2025-05-11 14:32 | DVHPN2 ---
Subjective minimal pain today Reviewed: H&P Changes from previous H/P or p: No Changes Eyes: No Pain, No Vision change, No Conjunctivae inflammation, No Eyelid inflammation, No Other, No Redness ENT: No Ear pain, No Ear discharge, No Nose pain, No Nose discharge, No Nose congestion, No Mouth pain, No Mouth swelling, No Throat pain, No Throat swelling, No Other Cardiovascular: No Chest Pain, No Palpitations, No Orthopnea, No Paroxysmal Noc. Dyspnea, No Edema, No Lt Headedness, No Other Respiratory: No Cough, No Dry, No Shortness of breath, No SOB with excertion, No Wheezing, No Hemoptysis, No Pleuritic Pain, No Sputum, No Other Gastrointestinal: Nausea, Vomiting, Abdominal Pain; No Diarrhea, No Constipation, No Melena, No Hematochezia, No Other Genitourinary: No Dysuria, No Frequency, No Incontinence, No Hematuria, No Retention; Other (Right flank pain) Musculoskeletal: No other, No neck pain, No shoulder pain, No arm pain, No back pain, No hand pain, No leg pain, No foot pain Skin: No Rash, No Lesions, No Jaundice, No Bruising, No Other Objective Vitals Vital Signs Date Time Temp Pulse Resp B/P (MAP) Pulse Ox O2 Delivery O2 Flow Rate FiO2 05/11/25 12:32 98.7 84 18 154/85 (108) 98 98.7 05/11/25 08:00 Room Air* 0 21 Intake/Output Intake and Output 05/11/25 07:00 Intake Total 2925.0 ml Balance 2925.0 ml Intake IV Total 2925.0 ml General Appearance: Alert, Oriented X3 HEENT: Atraumatic Lungs: Clear to auscultation Cardiovascular: Regular rate, Normal S1, Normal S2 Abdomen: Normal bowel sounds Medications Current Medications Medications Dose Ordered Sig/Carmen Route Start Time Stop Time Status Last Admin Dose Admin Famotidine 20 mg DAILY IV 05/11/25 10:00 05/11/25 10:31 20 MG Ceftriaxone Sodium 50 ml @ 100 mls/hr DAILY@09 IV 05/11/25 09:00 05/11/25 10:31 100 MLS/HR Metronidazole 100 ml @ 100 mls/hr Q8HR IV 05/10/25 22:00 05/11/25 05:23 100 MLS/HR Lactated Ringer's 1,000 ml @ 100 mls/hr Q10H IV 05/10/25 21:00 05/11/25 06:28 100 MLS/HR Acetaminophen/ Hydrocodone Bitart 1 tab Q4HP PRN PO 05/10/25 21:00 05/11/25 12:02 1 TAB Ondansetron HCl 4 mg Q4HP PRN IV 05/10/25 21:00 Docusate Sodium 100 mg BIDPRN PRN PO 05/10/25 21:00 Acetaminophen 650 mg Q6HP PRN PO 05/10/25 21:00 05/11/25 01:48 650 MG Morphine Sulfate 2 mg Q4HPRN PRN IV 05/10/25 21:00 Nitroglycerin 0.4 mg Q5MINP PRN SL 05/10/25 21:00 Morphine Sulfate 2 mg Q30M PRN IV 05/10/25 21:00 Sertraline HCl 100 mg DAILY PO 05/11/25 10:00 05/11/25 10:31 100 MG Tamsulosin HCl 0.4 mg QPM PO 05/11/25 18:00 Laboratory Results Laboratory Tests 05/11/25 03:10 Chemistry Test 05/10/25 17:54 05/10/25 19:20 05/11/25 03:10 Albumin 4.9 g/dL (3.2-4.8) H 5.0 g/dL (3.2-4.8) H 4.3 g/dL (3.2-4.8) Calcium Level 10.0 mg/dL (8.7-10.4) 10.2 mg/dL (8.7-10.4) 9.4 mg/dL (8.7-10.4) Total Protein 8.4 g/dL (5.7-8.2) H 8.6 g/dL (5.7-8.2) H 7.2 g/dL (5.7-8.2) Coagulation Test 05/10/25 17:54 Prothrombin Time 11.2 sec (9.3-11.8) Prothrombin Time INR 1.06 (0.9-1.15) Activated Partial Thromboplast Time 27.6 SEC (24.5-34.5) Lipid panel Test 05/10/25 17:54 Lipase 40 U/L (12-53) LFT Test 05/10/25 17:54 05/10/25 19:20 05/11/25 03:10 Alanine Aminotransferase (ALT) 74 U/L (7-40) H 76 U/L (7-40) H 56 U/L (7-40) H Alkaline Phosphatase 91 U/L (46-116) 93 U/L (46-116) 77 U/L (46-116) Aspartate Amino Transferase (AST) 34 U/L (13-40) 31 U/L (13-40) 24 U/L (13-40) Total Bilirubin 0.3 mg/dL (0.2-1.0) 0.4 mg/dL (0.2-1.0) 0.4 mg/dL (0.2-1.0) Urinalysis Test 05/11/25 00:17 Urine Color Light-yellow (Yellow) Urine Clarity Clear (Clear) Urine pH 6.0 (5.0-9.0) Urine Specific [place] 1.019 (1.001-1.035) Urine Protein 1+ (Negative) H Urine Ketones Negative (Negative) Urine Blood 3+ /uL (Negative) H Urine Nitrite Negative (Negative) Urine Bilirubin Negative (Negative) Urine Urobilinogen Normal mg/dL (Negative) Urine Leukocyte Esterase Negative /uL (Negative) Urine RBC 351 /hpf (0 - 3) Urine Microscopic WBC 1 /HPF (0-3) Urine Squamous Epithelial Cells None seen /hpf (<5) Urine Bacteria Few /hpf (None Seen) H Urine Glucose Normal mg/dL (Normal) Assessment/Plan Assessment/Plan Sepsis, unspecified organism Kidney stone Right flank pain Acute abdominal pain Generalized weakness Continue IV abx IVF Plan discussed with: Patient Date of Service: May 11, 2025 Billing Provider: ANTON MOON MD Common Visit Codes: [id number] INP/OBS CARE(HIGH) ANTON MOON MD May 11, 2025 14:32
[2025-05-11] MEDS: TAMSULOSIN HYDROCHLORIDE 0.4 MG CAP PO SCH (17:45)
[2025-05-11] MEDS: ONDANSETRON HCL 4 MG/2 ML VIAL IV PRN (17:45)
[2025-05-12] VITALS (8 sets, daily range): BP systolic 139–156; BP diastolic 70–105; PULSE 71–86; RESP 14–17; TEMP 97.9–99.5; O2SAT 94–98
--- NOTE | 2025-05-12 14:40 | DVHPN2 ---
Subjective minimal pain today Reviewed: H&P Changes from previous H/P or p: No Changes Eyes: No Pain, No Vision change, No Conjunctivae inflammation, No Eyelid inflammation, No Other, No Redness ENT: No Ear pain, No Ear discharge, No Nose pain, No Nose discharge, No Nose congestion, No Mouth pain, No Mouth swelling, No Throat pain, No Throat swelling, No Other Cardiovascular: No Chest Pain, No Palpitations, No Orthopnea, No Paroxysmal Noc. Dyspnea, No Edema, No Lt Headedness, No Other Respiratory: No Cough, No Dry, No Shortness of breath, No SOB with excertion, No Wheezing, No Hemoptysis, No Pleuritic Pain, No Sputum, No Other Gastrointestinal: Nausea, Vomiting, Abdominal Pain; No Diarrhea, No Constipation, No Melena, No Hematochezia, No Other Genitourinary: No Dysuria, No Frequency, No Incontinence, No Hematuria, No Retention; Other (Right flank pain) Musculoskeletal: No other, No neck pain, No shoulder pain, No arm pain, No back pain, No hand pain, No leg pain, No foot pain Skin: No Rash, No Lesions, No Jaundice, No Bruising, No Other Objective Vitals Vital Signs Date Time Temp Pulse Resp B/P (MAP) Pulse Ox O2 Delivery O2 Flow Rate FiO2 05/12/25 09:00 98.1 73 16 143/94 (110) 94 98.1 05/12/25 08:00 Room Air* 0 21 Intake/Output Intake and Output 05/12/25 05:00 Intake Total 150 ml Balance 150 ml Intake IV Total 150 ml General Appearance: Alert, Oriented X3 HEENT: Atraumatic Lungs: Clear to auscultation Cardiovascular: Regular rate, Normal S1, Normal S2 Abdomen: Normal bowel sounds Medications Current Medications Medications Dose Ordered Sig/Carmen Route Start Time Stop Time Status Last Admin Dose Admin Famotidine 20 mg DAILY IV 05/11/25 10:00 05/12/25 10:08 20 MG Ceftriaxone Sodium 50 ml @ 100 mls/hr DAILY@09 IV 05/11/25 09:00 05/12/25 10:08 100 MLS/HR Metronidazole 100 ml @ 100 mls/hr Q8HR IV 05/10/25 22:00 05/12/25 06:23 100 MLS/HR Lactated Ringer's 1,000 ml @ 100 mls/hr Q10H IV 05/10/25 21:00 05/12/25 06:25 100 MLS/HR Acetaminophen/ Hydrocodone Bitart 1 tab Q4HP PRN PO 05/10/25 21:00 05/12/25 08:17 1 TAB Ondansetron HCl 4 mg Q4HP PRN IV 05/10/25 21:00 05/11/25 17:45 4 MG Docusate Sodium 100 mg BIDPRN PRN PO 05/10/25 21:00 Acetaminophen 650 mg Q6HP PRN PO 05/10/25 21:00 05/11/25 20:43 650 MG Morphine Sulfate 2 mg Q4HPRN PRN IV 05/10/25 21:00 Nitroglycerin 0.4 mg Q5MINP PRN SL 05/10/25 21:00 Morphine Sulfate 2 mg Q30M PRN IV 05/10/25 21:00 Sertraline HCl 100 mg DAILY PO 05/11/25 10:00 05/12/25 10:10 100 MG Tamsulosin HCl 0.4 mg QPM PO 05/11/25 18:00 05/11/25 17:45 0.4 MG Laboratory Results Laboratory Tests 05/11/25 03:10 Urinalysis Test 05/11/25 00:17 Urine Color Light-yellow (Yellow) Urine Clarity Clear (Clear) Urine pH 6.0 (5.0-9.0) Urine Specific [place] 1.019 (1.001-1.035) Urine Protein 1+ (Negative) H Urine Ketones Negative (Negative) Urine Blood 3+ /uL (Negative) H Urine Nitrite Negative (Negative) Urine Bilirubin Negative (Negative) Urine Urobilinogen Normal mg/dL (Negative) Urine Leukocyte Esterase Negative /uL (Negative) Urine RBC 351 /hpf (0 - 3) Urine Microscopic WBC 1 /HPF (0-3) Urine Squamous Epithelial Cells None seen /hpf (<5) Urine Bacteria Few /hpf (None Seen) H Urine Glucose Normal mg/dL (Normal) Microbiology Microbiology Date/Time Source Procedure Growth Status 05/10/25 19:30 Blood Blood Culture - Preliminary NO GROWTH AFTER 24 HOURS OF INCUBATION. Resulted Assessment/Plan Assessment/Plan Sepsis, unspecified organism Kidney stone Right flank pain Acute abdominal pain Generalized weakness Continue IV abx IVF Consult urology Plan discussed with: Patient My Orders Orders - SARAI,ANTON J MD Procedure Category Date Status Time Regular Diet DIET 05/12/25 Transmitted Lunch * Urology Consult CONS 05/12/25 Transmitted 14:20 Date of Service: May 12, 2025 Billing Provider: ANTON MOON MD Common Visit Codes: [id number] INP/OBS CARE(HIGH) ANTON MOON MD May 12, 2025 14:40
[2025-05-13] VITALS (8 sets, daily range): BP systolic 123–146; BP diastolic 80–93; PULSE 18–94; RESP 17–94; TEMP 98–99.8; O2SAT 93–99
--- NOTE | 2025-05-13 12:21 | DVHINCON2 ---
Date of service: May 13, 2025 Referring Physician Hospitalist Reason for Consultation renal stones History of Present Illness History Source: Patient, RN Notes, MD Notes, Old Records Exam Limitations: No limitations HPI 9-year-old male with past medical history of kidney stone, prior lithotripsy 2020, GERD, and hiatal hernia who presented to [facility] ED with complaint of abdominal pain. Patient reports that he has been experiencing acute abdominal pain radiating to the right flank, rating 7/10 numeric scale, associated with nausea, vomiting, getting worse that prompted this visit. Review of Systems Gastrointestinal: Nausea, Vomiting, Abdominal Pain H&P Exam Vital Signs Vital Signs Date Time Temp Pulse Resp B/P (MAP) Pulse Ox O2 Delivery O2 Flow Rate FiO2 05/13/25 09:00 98.2 94 18 123/93 (103) 93 98.2 05/13/25 08:00 Room Air* 0 21 General Appeara: Well developed, Well nourished, Normal Appearance Labs/Xrays [place] [address] Ph: [phone] DIAGNOSTIC IMAGING Diagnostic Imaging Report : [id number] Signed PATIENT: MAIRA PHOENIX ACCT: [id number] UNIT: [id number] : 1985 LOC: ER ROOM / BED: / AGE / SEX: 39 / M ADM STATUS: REG ER SERVICE 1741 ORDERING PHYSICIAN: SUSHANT MCKEON DO PROCEDURE(s): ABPL - CT AB PEL WO CON-NO ORAL OR IV REASON: R FLANK, R ABD PAIN N/V ORDER NUMBER(s): [id number], ACCESSION NUMBER(s): [id number] EXAM: CT CT AB PEL WO CON-NO ORAL OR IV INDICATION: R FLANK, R ABD PAIN N/V TECHNIQUE: Volumetric multidetector CT images of the abdomen and pelvis were obtained without contrast. All CT scans at this facility use dose modulation, iterative reconstruction, and/or weight based dosing when appropriate to reduce radiation dose to as low as reasonably achievable. COMPARISON: None FINDINGS: [LOWER CHEST]: Atelectasis of the right lung base. The cardiac size is normal without pericardial effusion. [LIVER]: Normal hepatic size without suspicious focal lesion. [GALLBLADDER AND BILIARY TREE]: No cholelithiasis. [SPLEEN]: Unremarkable. [PANCREAS]: Unremarkable. [ADRENAL GLANDS]: Unremarkable [KIDNEYS]: Right renal pelvic 8 mm stone. Additional right inferior renal caliceal 6 mm stone. 2-3 mm left inferior renal caliceal stone with additional small caliber 1 mm stones. No measurable distal ureteral stone. No hydronephrosis. No suspicious focal lesion. [BLADDER]: Unremarkable for the degree distention. [REPRODUCTIVE ORGANS]: Unremarkable. [BOWEL/MESENTERY]: Mild stool burden. Stomach is normal. Normal appendix. No CT evidence of bowel obstruction. [ASCITES]: Absent [LYMPHADENOPATHY]: No pathologically enlarged lymph nodes by CT size criteria [VASCULATURE]: No aneurysmal dilatation. [ABDOMINAL WALL]: Unremarkable. [MUSCULOSKELETAL]: No acute fracture or aggressive focal osseous lesion. IMPRESSION: 1. No CT evidence of an acute abdominal/pelvic process. 2. Right renal pelvic 8 mm stone. 3. No hydronephrosis. ATED BY: CHACORTA HICKMAN MD DICTATED DATE/TIME: 05/10/251911 SIGNED BY: CHACORTA HICKMAN MD SIGNED DATE/TIME: 05/10/251911 CC: Labs Test 05/11/25 03:10 05/11/25 00:17 05/10/25 22:13 05/10/25 17:54 Range/Units White Blood Count 11.4 H 4.4-10.8 10^3/uL Red Blood Count 4.80 4.5-5.90 10^6/uL Hemoglobin 13.1 L 13.5-17.5 g/dL Hematocrit 39.3 #L 41.0-53.0 % Mean Corpuscular Volume 81.9 80.0-100.0 fL Mean Corpuscular Hemoglobin 27.4 L 28.0-32.0 pg Mean Corpuscular Hemoglobin Concent 33.4 32.0-36.0 g/dL Red Cell Distribution Width 14.3 11.8-14.3 % Platelet Count 289 140-450 10^3/uL Mean Platelet Volume 6.3 L 6.9-10.8 fL Neutrophils (%) (Auto) 79.9 37.0-80.0 % Lymphocytes (%) (Auto) 11.1 10.0-50.0 % Monocytes (%) (Auto) 8.5 0.0-12.0 % Eosinophils (%) (Auto) 0.0 0.0-7.0 % Basophils (%) (Auto) 0.5 0.0-2.0 % Neutrophils # (Auto) 9.1 H 1.6-8.6 10 ^3/uL Lymphocytes # (Auto) 1.3 0.4-5.4 10 ^3/uL Monocytes # (Auto) 1.0 0-1.3 10 ^3/uL Eosinophils # (Auto) 0 0-0.8 10 ^3/uL Basophils # (Auto) 0.1 0-0.2 10 ^3/uL Nucleated Red Blood Cells 0.0 % Sodium Level 141 136-145 mmol/L Potassium Level 4.3 3.5-5.1 mmol/L Chloride Level 105 98-107 mmol/L Carbon Dioxide Level 26 20-31 mmol/L Anion Gap 10 5-15 Blood Urea Nitrogen 13 9-23 mg/dL Creatinine 1.11 0.700-1.30 mg/dL Glomerular Filtration Rate Calc 87 >90 mL/min BUN/Creatinine Ratio 11.7 10.0-20.0 Serum Glucose 105 74-106 mg/dL Calcium Level 9.4 8.7-10.4 mg/dL Total Bilirubin 0.4 0.2-1.0 mg/dL Aspartate Amino Transferase (AST) 24 13-40 U/L Alanine Aminotransferase (ALT) 56 H 7-40 U/L Alkaline Phosphatase 77 46-116 U/L Total Protein 7.2 5.7-8.2 g/dL Albumin 4.3 3.2-4.8 g/dL Urine Color Light-yellow Yellow Urine Clarity Clear Clear Urine pH 6.0 5.0-9.0 Urine Specific [place] 1.019 1.001-1.035 Urine Protein 1+ H Negative Urine Ketones Negative Negative Urine Blood 3+ H Negative /uL Urine Nitrite Negative Negative Urine Bilirubin Negative Negative Urine Urobilinogen Normal Negative mg/dL Urine Leukocyte Esterase Negative Negative /uL Urine RBC 351 0 - 3 /hpf Urine Microscopic WBC 1 0-3 /HPF Urine Squamous Epithelial Cells None seen <5 /hpf Urine Bacteria Few H None Seen /hpf Urine Glucose Normal Normal mg/dL Lactic Acid Level 1.9 0.4-2.0 mmol/L Prothrombin Time 11.2 9.3-11.8 sec Prothrombin Time INR 1.06 0.9-1.15 Activated Partial Thromboplast Time 27.6 24.5-34.5 SEC Lipase 40 12-53 U/L Microbiology Date/Time Source Procedure Growth Status 05/10/25 19:30 Blood Blood Culture - Preliminary NO GROWTH AFTER 48 HOURS OF INCUBATION. Resulted Assessment/Plan Problem List: (1) Kidney stone (2) Flank pain Plan NPO after midnight consent for cystoscopy with possible stent placement and right ESWL Plan discussed with: Patient, Other CULLEN VASQUEZ [employer] May 13, 2025 12:21
--- NOTE | 2025-05-13 14:12 | MEDREC ---
[facility] Intervention Section I [facility] Intervention: Review courses of therapy (PLEASE CONSIDER D/C ANTIBIOTIC IN ABSENCE OF BACTERIAL INFECTION) PHILIP LOGAN PHARMACIST May 13, 2025 14:12
--- NOTE | 2025-05-13 15:44 | DVHPN2 ---
Subjective minimal pain today Reviewed: H&P Changes from previous H/P or p: No Changes Eyes: No Pain, No Vision change, No Conjunctivae inflammation, No Eyelid inflammation, No Other, No Redness ENT: No Ear pain, No Ear discharge, No Nose pain, No Nose discharge, No Nose congestion, No Mouth pain, No Mouth swelling, No Throat pain, No Throat swelling, No Other Cardiovascular: No Chest Pain, No Palpitations, No Orthopnea, No Paroxysmal Noc. Dyspnea, No Edema, No Lt Headedness, No Other Respiratory: No Cough, No Dry, No Shortness of breath, No SOB with excertion, No Wheezing, No Hemoptysis, No Pleuritic Pain, No Sputum, No Other Gastrointestinal: Nausea, Vomiting, Abdominal Pain; No Diarrhea, No Constipation, No Melena, No Hematochezia, No Other Genitourinary: No Dysuria, No Frequency, No Incontinence, No Hematuria, No Retention; Other (Right flank pain) Musculoskeletal: No other, No neck pain, No shoulder pain, No arm pain, No back pain, No hand pain, No leg pain, No foot pain Skin: No Rash, No Lesions, No Jaundice, No Bruising, No Other Objective Vitals Vital Signs Date Time Temp Pulse Resp B/P (MAP) Pulse Ox O2 Delivery O2 Flow Rate FiO2 05/13/25 12:48 98.4 78 18 144/82 (102) 97 98.4 05/13/25 08:00 Room Air* 0 21 Intake/Output Intake and Output 05/13/25 05:00 Intake Total 100 ml Balance 100 ml Intake IV Total 100 ml General Appearance: Alert, Oriented X3 HEENT: Atraumatic Lungs: Clear to auscultation Cardiovascular: Regular rate, Normal S1, Normal S2 Abdomen: Normal bowel sounds Medications Current Medications Medications Dose Ordered Sig/Carmen Route Start Time Stop Time Status Last Admin Dose Admin Famotidine 20 mg DAILY IV 05/11/25 10:00 05/13/25 08:42 20 MG Ceftriaxone Sodium 50 ml @ 100 mls/hr DAILY@09 IV 05/11/25 09:00 05/13/25 08:40 100 MLS/HR Metronidazole 100 ml @ 100 mls/hr Q8HR IV 05/10/25 22:00 05/13/25 14:11 100 MLS/HR Acetaminophen/ Hydrocodone Bitart 1 tab Q4HP PRN PO 12/5/25 21:00 05/12/25 15:45 1 TAB Ondansetron HCl 4 mg Q4HP PRN IV 05/10/25 21:00 05/11/25 17:45 4 MG Docusate Sodium 100 mg BIDPRN PRN PO 05/10/25 21:00 Acetaminophen 650 mg Q6HP PRN PO 05/10/25 21:00 05/13/25 05:48 650 MG Morphine Sulfate 2 mg Q4HPRN PRN IV 05/10/25 21:00 Nitroglycerin 0.4 mg Q5MINP PRN SL 05/10/25 21:00 Morphine Sulfate 2 mg Q30M PRN IV 05/10/25 21:00 Sertraline HCl 100 mg DAILY PO 05/11/25 10:00 05/13/25 08:42 100 MG Tamsulosin HCl 0.4 mg QPM PO 05/11/25 18:00 05/12/25 17:37 0.4 MG Laboratory Results Laboratory Tests 05/11/25 03:10 Urinalysis Test 05/11/25 00:17 Urine Color Light-yellow (Yellow) Urine Clarity Clear (Clear) Urine pH 6.0 (5.0-9.0) Urine Specific [place] 1.019 (1.001-1.035) Urine Protein 1+ (Negative) H Urine Ketones Negative (Negative) Urine Blood 3+ /uL (Negative) H Urine Nitrite Negative (Negative) Urine Bilirubin Negative (Negative) Urine Urobilinogen Normal mg/dL (Negative) Urine Leukocyte Esterase Negative /uL (Negative) Urine RBC 351 /hpf (0 - 3) Urine Microscopic WBC 1 /HPF (0-3) Urine Squamous Epithelial Cells None seen /hpf (<5) Urine Bacteria Few /hpf (None Seen) H Urine Glucose Normal mg/dL (Normal) Microbiology Microbiology Date/Time Source Procedure Growth Status 05/10/25 19:30 Blood Blood Culture - Preliminary NO GROWTH AFTER 48 HOURS OF INCUBATION. Resulted Assessment/Plan Assessment/Plan Sepsis, unspecified organism Kidney stone Right flank pain Acute abdominal pain Generalized weakness Continue IV abx IVF Consult urology>going for stent and lithotripsy Plan discussed with: Patient My Orders Orders - ANTON MOON MD Procedure Category Date Status Time * Urology Consult CONS 05/13/25 Transmitted 11:01 Date of Service: May 13, 2025 Billing Provider: ANTON MOON MD Common Visit Codes: [id number] INP/OBS CARE(HIGH) ANTON MOON MD May 13, 2025 15:44
[2025-05-14 01:00] VITALS: BP 152/98; PULSE 81; RESP 18; TEMP 98.3; O2SAT 96
[2025-05-14 05:00] VITALS: BP 133/85; PULSE 75; RESP 17; TEMP 97.6; O2SAT 94
[2025-05-14 07:13] LABS: INR 1.13 (0.9-1.15); Partial Thromboplastin Time 30.5 SEC (24.5-34.5); Prothrombin Time 11.8 sec (9.3-11.8)
[2025-05-14 08:00] VITALS: PULSE 66; PULSE 74; RESP 16; O2SAT 95
[2025-05-14 09:00] VITALS: BP 119/77; PULSE 74; RESP 16; TEMP 97.7; O2SAT 95
[2025-05-14] MEDS ORDERED: CIPROFLOXACIN 400MG/200ML 200 ML IV ONE (12:21)
--- NOTE | 2025-05-14 12:28 | DVHPN2 ---
Subjective minimal pain today Reviewed: H&P Changes from previous H/P or p: No Changes Eyes: No Pain, No Vision change, No Conjunctivae inflammation, No Eyelid inflammation, No Other, No Redness ENT: No Ear pain, No Ear discharge, No Nose pain, No Nose discharge, No Nose congestion, No Mouth pain, No Mouth swelling, No Throat pain, No Throat swelling, No Other Cardiovascular: No Chest Pain, No Palpitations, No Orthopnea, No Paroxysmal Noc. Dyspnea, No Edema, No Lt Headedness, No Other Respiratory: No Cough, No Dry, No Shortness of breath, No SOB with excertion, No Wheezing, No Hemoptysis, No Pleuritic Pain, No Sputum, No Other Gastrointestinal: Nausea, Vomiting, Abdominal Pain; No Diarrhea, No Constipation, No Melena, No Hematochezia, No Other Genitourinary: No Dysuria, No Frequency, No Incontinence, No Hematuria, No Retention; Other (Right flank pain) Musculoskeletal: No other, No neck pain, No shoulder pain, No arm pain, No back pain, No hand pain, No leg pain, No foot pain Skin: No Rash, No Lesions, No Jaundice, No Bruising, No Other Objective Vitals Vital Signs Date Time Temp Pulse Resp B/P (MAP) Pulse Ox O2 Delivery O2 Flow Rate FiO2 05/14/25 09:00 97.7 74 16 119/77 (91) 95 97.7 05/13/25 20:00 Room Air* 0 21 Intake/Output Intake and Output 05/14/25 07:00 Intake Total 100 ml Balance 100 ml Intake IV Total 100 ml General Appearance: Alert, Oriented X3 HEENT: Atraumatic Lungs: Clear to auscultation Cardiovascular: Regular rate, Normal S1, Normal S2 Abdomen: Normal bowel sounds Medications Current Medications Medications Dose Ordered Sig/Carmen Route Start Time Stop Time Status Last Admin Dose Admin Famotidine 20 mg DAILY IV 05/11/25 10:00 05/14/25 10:06 20 MG Ceftriaxone Sodium 50 ml @ 100 mls/hr DAILY@09 IV 05/11/25 09:00 05/14/25 10:06 100 MLS/HR Metronidazole 100 ml @ 100 mls/hr Q8HR IV 05/10/25 22:00 05/14/25 05:19 100 MLS/HR Acetaminophen/ Hydrocodone Bitart 1 tab Q4HP PRN PO 12/5/25 21:00 05/12/25 15:45 1 TAB Ondansetron HCl 4 mg Q4HP PRN IV 05/10/25 21:00 05/11/25 17:45 4 MG Docusate Sodium 100 mg BIDPRN PRN PO 05/10/25 21:00 Acetaminophen 650 mg Q6HP PRN PO 05/10/25 21:00 05/13/25 05:48 650 MG Morphine Sulfate 2 mg Q4HPRN PRN IV 05/10/25 21:00 Nitroglycerin 0.4 mg Q5MINP PRN SL 05/10/25 21:00 Morphine Sulfate 2 mg Q30M PRN IV 05/10/25 21:00 Sertraline HCl 100 mg DAILY PO 05/11/25 10:00 05/13/25 08:42 100 MG Tamsulosin HCl 0.4 mg QPM PO 05/11/25 18:00 05/13/25 17:09 0.4 MG Laboratory Results Laboratory Tests 05/11/25 03:10 Coagulation Test 05/14/25 06:01 Prothrombin Time 11.8 sec (9.3-11.8) Prothrombin Time INR 1.13 (0.9-1.15) Activated Partial Thromboplast Time 30.5 SEC (24.5-34.5) Urinalysis Test 05/11/25 00:17 Urine Color Light-yellow (Yellow) Urine Clarity Clear (Clear) Urine pH 6.0 (5.0-9.0) Urine Specific [place] 1.019 (1.001-1.035) Urine Protein 1+ (Negative) H Urine Ketones Negative (Negative) Urine Blood 3+ /uL (Negative) H Urine Nitrite Negative (Negative) Urine Bilirubin Negative (Negative) Urine Urobilinogen Normal mg/dL (Negative) Urine Leukocyte Esterase Negative /uL (Negative) Urine RBC 351 /hpf (0 - 3) Urine Microscopic WBC 1 /HPF (0-3) Urine Squamous Epithelial Cells None seen /hpf (<5) Urine Bacteria Few /hpf (None Seen) H Urine Glucose Normal mg/dL (Normal) Microbiology Microbiology Date/Time Source Procedure Growth Status 05/10/25 19:30 Blood Blood Culture - Preliminary NO GROWTH AFTER 72 HOURS OF INCUBATION. Resulted Assessment/Plan Assessment/Plan Sepsis, unspecified organism Kidney stone Right flank pain Acute abdominal pain Generalized weakness Continue IV abx IVF Consult urology>going for stent and lithotripsy Plan discussed with: Patient Date of Service: May 14, 2025 Billing Provider: ANTON MOON MD Common Visit Codes: [id number] INP/OBS CARE(HIGH) ANTON MOON MD May 14, 2025 12:28
[2025-05-14 13:00] VITALS: BP 126/80; PULSE 83; RESP 17; TEMP 98; O2SAT 96
[2025-05-14] MEDS ORDERED: ONDANSETRON HCL 4 MG/2 ML VIAL ONE (13:02)
[2025-05-14] MEDS ORDERED: MEPERIDINE HCL (25 MG/ML) 1ML VIAL ONE (13:02)
[2025-05-14] MEDS ORDERED: fentaNYL CITRATE 100 MCG/2 ML VL ONE (13:02)
[2025-05-14] MEDS ORDERED: MIDAZOLAM HCL 2MG/2ML 2ml VIAL (1mg/ml) ONE (13:02)
[2025-05-14] MEDS ORDERED: SODIUM CHLORIDE LOCK 0 ML ONE (13:02)
[2025-05-14] MEDS ORDERED: KETAMINE 50mg/ML 10ml Vial 0 ML ONE (13:02)
[2025-05-14] MEDS ORDERED: PROPOFOL 10 MG/ML 20 ML IV ONE (13:02)
--- NOTE | 2025-05-14 14:10 | DVHPN2 ---
Progress Note - Dictate Date Seen: May 14, 2025 Has the PT tested + for MRSA If YES, has PT been informed?: No Medical Necessity Reason Pt with a Central, PICC or Fol: No Medical Necessity Reason Patient was admitted for right-sided flank pain and hematuria. CT scan shows multiple right nephro lithiasis including an 8 mm nonobstructing renal pelvic stone. Not realizing that patient had already undergone lithotripsy, he was scheduled for ESWL today. However talking to the patient and his family at the preop area, it was discovered that he did undergo indeed a shockwave lithotripsy by another urologist on 05/10/2025. Subjective Right flank pain vital signs Vital Sign Date Time Temp Pulse Resp B/P (MAP) Pulse Ox O2 Delivery O2 Flow Rate FiO2 05/14/25 09:00 97.7 74 16 119/77 (91) 95 97.7 05/13/25 20:00 Room Air* 0 21 Total Intake and Output 05/13/25 05/13/25 05/14/25 15:00 23:00 07:00 Intake Total 100 ml Balance 100 ml medications Current Medications Medications Dose Ordered Sig/Cramen Route Start Time Stop Time Status Last Admin Dose Admin Famotidine 20 mg DAILY IV 05/11/25 10:00 05/14/25 10:06 20 MG Ceftriaxone Sodium 50 ml @ 100 mls/hr DAILY@09 IV 05/11/25 09:00 05/14/25 10:06 100 MLS/HR Metronidazole 100 ml @ 100 mls/hr Q8HR IV 05/10/25 22:00 05/14/25 05:19 100 MLS/HR Acetaminophen/ Hydrocodone Bitart 1 tab Q4HP PRN PO 05/10/25 21:00 05/12/25 15:45 1 TAB Ondansetron HCl 4 mg Q4HP PRN IV 05/10/25 21:00 05/11/25 17:45 4 MG Docusate Sodium 100 mg BIDPRN PRN PO 05/10/25 21:00 Acetaminophen 650 mg Q6HP PRN PO 05/10/25 21:00 05/13/25 05:48 650 MG Morphine Sulfate 2 mg Q4HPRN PRN IV 05/10/25 21:00 Nitroglycerin 0.4 mg Q5MINP PRN SL 05/10/25 21:00 Morphine Sulfate 2 mg Q30M PRN IV 05/10/25 21:00 Sertraline HCl 100 mg DAILY PO 05/11/25 10:00 05/13/25 08:42 100 MG Tamsulosin HCl 0.4 mg QPM PO 05/11/25 18:00 05/13/25 17:09 0.4 MG objective PATIENT: MAIRA PHOENIX ACCT: [id number] UNIT: [id number] : 1985 LOC: ER ROOM / BED: / AGE / SEX: 39 / M ADM STATUS: REG ER SERVICE 1741 ORDERING PHYSICIAN: SUSHANT MCKEON DO PROCEDURE(s): ABPL - CT AB PEL WO CON-NO ORAL OR IV REASON: R FLANK, R ABD PAIN N/V ORDER NUMBER(s): [id number], ACCESSION NUMBER(s): [id number] EXAM: CT CT AB PEL WO CON-NO ORAL OR IV INDICATION: R FLANK, R ABD PAIN N/V TECHNIQUE: Volumetric multidetector CT images of the abdomen and pelvis were obtained without contrast. All CT scans at this facility use dose modulation, iterative reconstruction, and/or weight based dosing when appropriate to reduce radiation dose to as low as reasonably achievable. COMPARISON: None FINDINGS: [LOWER CHEST]: Atelectasis of the right lung base. The cardiac size is normal without pericardial effusion. [LIVER]: Normal hepatic size without suspicious focal lesion. [GALLBLADDER AND BILIARY TREE]: No cholelithiasis. [SPLEEN]: Unremarkable. [PANCREAS]: Unremarkable. [ADRENAL GLANDS]: Unremarkable [KIDNEYS]: Right renal pelvic 8 mm stone. Additional right inferior renal caliceal 6 mm stone. 2-3 mm left inferior renal caliceal stone with additional small caliber 1 mm stones. No measurable distal ureteral stone. No hydronephrosis. No suspicious focal lesion. [BLADDER]: Unremarkable for the degree distention. [REPRODUCTIVE ORGANS]: Unremarkable. [BOWEL/MESENTERY]: Mild stool burden. Stomach is normal. Normal appendix. No CT evidence of bowel obstruction. [ASCITES]: Absent [LYMPHADENOPATHY]: No pathologically enlarged lymph nodes by CT size criteria [VASCULATURE]: No aneurysmal dilatation. [ABDOMINAL WALL]: Unremarkable. [MUSCULOSKELETAL]: No acute fracture or aggressive focal osseous lesion. IMPRESSION: 1. No CT evidence of an acute abdominal/pelvic process. 2. Right renal pelvic 8 mm stone. 3. No hydronephrosis. ATED BY: CHACORTA HICKMAN MD DICTATED DATE/TIME: 05/10/251911 SIGNED BY: CHACORTA HICKMAN MD SIGNED DATE/TIME: 05/10/251911 CC: laboratory and microbiology Laboratory Tests 05/11/25 03:10 Test 05/11/25 03:10 Range/Units Serum Glucose 105 74-106 mg/dL Problem List Lab values all within normal limits. CT scan shows no evidence of obstructive uropathy. Assessment/Plan Patient was to follow up with the urologist for further management of his residual renal lithiasis. Plan discussed with: Patient, Other CELESTE AVENDANO MD May 14, 2025 14:10
[2025-05-14] MEDS ORDERED: CIPR500T4 PO (16:32)
[2025-05-14] MEDS ORDERED: TAMS-35 PO (16:32)
--- NOTE | 2025-05-14 16:35 | DVHDS2 ---
Discharge Summary Date of Admission May 10, 2025 at 20:47 Date of Discharge: May 14, 2025 Labs/Diagnostic Data: Laboratory Results Test 05/14/25 06:01 05/11/25 03:10 05/11/25 00:17 05/10/25 22:13 Prothrombin Time 11.8 sec (9.3-11.8) Prothrombin Time INR 1.13 (0.9-1.15) Activated Partial Thromboplast Time 30.5 SEC (24.5-34.5) White Blood Count 11.4 10^3/uL (4.4-10.8) Red Blood Count 4.80 10^6/uL (4.5-5.90) Hemoglobin 13.1 g/dL (13.5-17.5) Hematocrit 39.3 % (41.0-53.0) Mean Corpuscular Volume 81.9 fL (80.0-100.0) Mean Corpuscular Hemoglobin 27.4 pg (28.0-32.0) Mean Corpuscular Hemoglobin Concent 33.4 g/dL (32.0-36.0) Red Cell Distribution Width 14.3 % (11.8-14.3) Platelet Count 289 10^3/uL (140-450) Mean Platelet Volume 6.3 fL (6.9-10.8) Neutrophils (%) (Auto) 79.9 % (37.0-80.0) Lymphocytes (%) (Auto) 11.1 % (10.0-50.0) Monocytes (%) (Auto) 8.5 % (0.0-12.0) Eosinophils (%) (Auto) 0.0 % (0.0-7.0) Basophils (%) (Auto) 0.5 % (0.0-2.0) Neutrophils # (Auto) 9.1 10 ^3/uL (1.6-8.6) Lymphocytes # (Auto) 1.3 10 ^3/uL (0.4-5.4) Monocytes # (Auto) 1.0 10 ^3/uL (0-1.3) Eosinophils # (Auto) 0 10 ^3/uL (0-0.8) Basophils # (Auto) 0.1 10 ^3/uL (0-0.2) Nucleated Red Blood Cells 0.0 % Sodium Level 141 mmol/L (136-145) Potassium Level 4.3 mmol/L (3.5-5.1) Chloride Level 105 mmol/L (98-107) Carbon Dioxide Level 26 mmol/L (20-31) Anion Gap 10 (5-15) Blood Urea Nitrogen 13 mg/dL (9-23) Creatinine 1.11 mg/dL (0.700-1.30) Glomerular Filtration Rate Calc 87 mL/min (>90) BUN/Creatinine Ratio 11.7 (10.0-20.0) Serum Glucose 105 mg/dL (74-106) Calcium Level 9.4 mg/dL (8.7-10.4) Total Bilirubin 0.4 mg/dL (0.2-1.0) Aspartate Amino Transferase (AST) 24 U/L (13-40) Alanine Aminotransferase (ALT) 56 U/L (7-40) Alkaline Phosphatase 77 U/L (46-116) Total Protein 7.2 g/dL (5.7-8.2) Albumin 4.3 g/dL (3.2-4.8) Urine Color Light-yellow (Yellow) Urine Clarity Clear (Clear) Urine pH 6.0 (5.0-9.0) Urine Specific [place] 1.019 (1.001-1.035) Urine Protein 1+ (Negative) Urine Ketones Negative (Negative) Urine Blood 3+ /uL (Negative) Urine Nitrite Negative (Negative) Urine Bilirubin Negative (Negative) Urine Urobilinogen Normal mg/dL (Negative) Urine Leukocyte Esterase Negative /uL (Negative) Urine RBC 351 /hpf (0 - 3) Urine Microscopic WBC 1 /HPF (0-3) Urine Squamous Epithelial Cells None seen /hpf (<5) Urine Bacteria Few /hpf (None Seen) Urine Glucose Normal mg/dL (Normal) Lactic Acid Level 1.9 mmol/L (0.4-2.0) Test 05/10/25 17:54 Lipase 40 U/L (12-53) Other Laboratory Tests 05/11/25 03:10 Brief Hx & Hospital Course: 39-year-old male with past medical history of kidney stone, GERD, and hiatal hernia who presented to [facility] ED with complaint of abdominal pain. Patient reports that he has been experiencing acute abdominal pain radiating to the right flank, rating 7/10 numeric scale, associated with nausea, vomiting, getting worse that prompted this visit. Patient was seen and evaluated in the ED, laboratory data shows WBC 12.7, platelets 333, sodium 143, potassium 4.7, BUN 15, creatinine 1.37, GFR 67, glucose 114, calcium 10.2, AST 31, ALT 76, protein 8.6, albumin 5.0, lipase 40, lactic acid 4.2, blood pressure 146/87, heart rate 89, temperature 97.9 F, O2 saturation 96% on oxygen. Abdomen/pelvis CT revealing right renal pelvic 8 mm stone, no hydronephrosis, no evidence of an acute abdominal/pelvic process. Patient was started on IV antibiotic regimen Rocephin, please see medication orders section in the computer. On my assessment, patient denied chest pain, no headache, dizziness, diaphoresis, shortness of breaths, no diarrhea, nausea, vomiting, fever, no chills. Patient was admitted for further evaluation and medical management. Had ureteral stone and also recently had lithotripsy creat high and got better with IVF Condition at Discharge: Good Final Diagnosis/Problems List ureteral stone cystitis without hematuria Discharge Disposition: Home Discharge Instruct/Medications Diet: Regular Activity: No Restrictions, As Tolerated Follow Up/Referral: PCP in 7 days Medications: ciprofloxin, tamsulosin Scheduled Ciprofloxacin Hcl (Ciprofloxacin Hcl), 1 TAB PO BID Tamsulosin Hcl (Flomax), 0.4 MG PO QPM Discharge Statement: "Patient was advised to return to the ER or call 911 if any headaches, dizziness, shortness of breath, chest pain, abdominal pain, bleeding, fevers, or worsening of medical condition. Patient was counseled about treatment plan, medications, possible side effects, patientverbalized understanding. All questions were answered to the best of my ability. This discharge took greater then 30 minutes in planning, reviewing documentation, counseling the patient, and discussing with other team members." ASSESSMENT ASSESSMENT Assessment ureteral stone cystitis without hematuria Date of Service: May 14, 2025 Billing Provider: ANTON MOON MD Common Visit Codes: [id number] DISCH DAY >30min ANTON MOON MD May 14, 2025 16:35
[2025-05-14 17:00] VITALS: BP 145/74; PULSE 83; RESP 17; TEMP 98.1; O2SAT 98
== END 2025-05-14 17:40 | disposition home or self-care (01) | DRG 463 ==
LOC: ER 17:33 → EDBD 17:33 → OVERFLOW 20:47 → TELE-WESTW 05-11 04:02
PROVIDERS: ADMIT Hospitalist; ATTEND Hospitalist
DX: N30.90 Cystitis, unspecified without hematuria (principal); N17.0 Acute kidney failure with tubular necrosis; R65.11 Systemic inflammatory response syndrome (SIRS) of non-infectious origin with acute organ dysfunction; K21.9 Gastro-esophageal reflux disease without esophagitis; K44.9 Diaphragmatic hernia without obstruction or gangrene; N20.2 Calculus of kidney with calculus of ureter
CPT/HCPCS: 36415; 71045; 74176; 80053; 81001; 83605; 83690; 85025; 85610; 85730; 86850; 86900; 86901; 87040; 96365; 96367; 96375; 99291; G0378; J2250; J2405; J2704; J3490